=== PATIENT | male | born 1950 | race American Indian/Alaskan Native ===

== ENCOUNTER 2020-03-30 17:28 | Emergency (ER) | payer MEDICARE ==
--- NOTE | 2020-03-30 19:05 | XRay Report ---
RIGHT FOOT 3 VIEWS INDICATION / CLINICAL INFORMATION: right small toe pain and swelling. COMPARISON: None available. FINDINGS: BONES/JOINT(S): There is a mildly displaced fracture of the shaft of the fifth proximal phalanx. Ther e is no other acute fracture. There is mild DJD in the first MTP joint. SOFT TISSUES: No significant abnormality. ADDITIONAL FINDINGS: None. Signer Name: Tyrell Fountain MD Signed: 03/30/2020 7:01 PM Workstation Name: [id number]
[2020-03-30] MEDS ORDERED: NEOMY 3.5 MG/BACIT 400 UNITS/POLY B 5000 UNITS/GM OINT PACKET TP ONE (19:06)
--- NOTE | 2020-03-30 19:17 | Emergency Department Report ---
ED Lower Extremity HPI - General Chief Complaint: Extremity Injury, Lower Stated Complaint: POSS BROKEN TOE Time Seen by Provider: 03/30/20 18:20 Source: patient Mode of arrival: Ambulatory Limitations: No Limitations - History of Present Illness Initial Comments: Patient is a 69-year-old male who presents emergency room with complaints of a possible broken toe. He states that 3 days ago the garbage can fell onto his right small toe. He states since then he has had toe pain and swelling. He has been ambulatory. He denies ever injuring in the past. He denies any weakness. He states he has a history of neuropathy in this foot. He has a past medical history of neuropathy and hypertension. He has an allergy to amlodipine and lisinopril. He states that his Tdap is up-to-date. - Related Data Previous Rx's Medication Instructions Recorded Last Taken Type Acetaminophen [Tylenol] 650 mg PO Q8HR PRN #20 capsule 03/30/20 Unknown Rx Neomycin/Bacitracin/Polymyxinb 1 applicatio TP BID #14 oint...g. 03/30/20 Unknown Rx [Triple Antibiotic Ointment] cephALEXin [Keflex] 500 mg PO QID 7 Days #28 cap 03/30/20 Unknown Rx Allergies Allergy/AdvReac Type Severity Reaction Status Date / Time amlodipine Allergy Unknown Verified 03/30/20 18:15 lisinopril Allergy Unknown Verified 03/30/20 18:15 ED Review of Systems ROS: Stated complaint: POSS BROKEN TOE Other details as noted in HPI Comment: All other systems reviewed and negative ED Past Medical Hx - Past Medical History Previous Medical History?: Yes Hx Hypertension: Yes - Surgical History Past Surgical History?: No - Social History Smoking Status: Never Smoker Substance Use Type: None - Medications Home Medications: Home Medications Medication Instructions Recorded Confirmed Last Taken Type Acetaminophen [Tylenol] 650 mg PO Q8HR PRN #20 capsule 03/30/20 Unknown Rx Neomycin/Bacitracin/Polymyxinb 1 applicatio TP BID #14 oint...g. 03/30/20 Unknown Rx [Triple Antibiotic Ointment] cephALEXin [Keflex] 500 mg PO QID 7 Days #28 cap 03/30/20 Unknown Rx ED Physical Exam - General Limitations: No Limitations General appearance: alert, in no apparent distress - Head Head exam: Present: atraumatic, normocephalic - Eye Eye exam: Present: normal appearance - ENT ENT exam: Present: mucous membranes moist - Respiratory Respiratory exam: Absent: respiratory distress, accessory muscle use - Extremities Exam Extremities exam: Present: other (ttp and edema present to the right 5th toe, there is a laceration/ulceration present to the plantar surface of the right 5th toe, superficial, does not involve the subcutaneous fat, no bleeding or drainage, no increased warmth, brisk cap refill, FROM of the RLE) - Neurological Exam Neurological exam: Present: alert, oriented X3 - Psychiatric Psychiatric exam: Present: normal affect, normal mood - Skin Skin exam: Present: warm, dry ED Course Vital Signs 03/30/20 03/30/20 18:16 20:46 Temperature 98.5 F 98.6 F Pulse Rate 76 74 Respiratory 20 20 Rate Blood Pressure 137/93 Blood Pressure 160/95 [Left] O2 Sat by Pulse 99 Oximetry ED Lower Extremity MDM - Radiology Data Radiology results: report reviewed Ordering Physician: INDY HUNT Date of Service: 03/30/20 Procedure(s): XR foot 3+V RT Accession Number(s): [id number] cc: INDY HUNT Fluoro Time In Minutes: RIGHT FOOT 3 VIEWS INDICATION / CLINICAL INFORMATION: right small toe pain and swelling. COMPARISON: None available. FINDINGS: BONES/JOINT(S): There is a mildly displaced fracture of the shaft of the fifth proximal phalanx. There is no other acute fracture. There is mild DJD in the first MTP joint. SOFT TISSUES: No significant abnormality. ADDITIONAL FINDINGS: None. Signer Name: Tyrell Fountain MD Signed: 03/30/2020 7:01 PM Workstation Name: [id number] Transcribed By: DOROTHY Dictated By: Tyrell Fountain MD Electronically Authenticated By: Tyrell Fountain MD Signed Date/Time: 03/30/201900 DD/ 99 TD/TT: - Medical Decision Making Patient is a 69-year-old male who presents emergency room with complaints of a possible broken toe. He states that 3 days ago the garbage can fell onto his right small toe. He states since then he has had toe pain and swelling. He has been ambulatory. He denies ever injuring in the past. He denies any weakness. He states he has a history of neuropathy in this foot. He has a past medical history of neuropathy and hypertension. He has an allergy to amlodipine and lisinopril. He states that his Tdap is up-to-date. Vitals are stable. On exam:ttp and edema present to the right 5th toe, there is a laceration/ulceration present to the plantar surface of the right 5th toe, superficial, does not involve the subcutaneous fat, no bleeding or drainage, no increased warmth, brisk cap refill, FROM of the RLE. XR right foot: BONES/JOINT(S): There is a mildly displaced fracture of the shaft of the fifth proximal phalanx. There is no other acute fracture. There is mild DJD in the first MTP joint. SOFT TISSUES: No significant abnormality. ADDITIONAL FINDINGS: None. Wound care performed by nurse and dressing placed the toes were josiah taped and patient was placed in a postop shoe. Discussed all results with patient and the importance of follow-up. Patient will be referred to podiatry given wound to the plantar surface of the toe. Discussed very strict return precautions in detail with patient. Patient given prescription for triple antibiotic ointment, Keflex, Tylenol. Advised patient Please use medication as prescribed. Follow- up with a television director. Please keep area clean, dry, covered. Wash with antibacterial soap and water and pat dry. Return to emergency room for any new or worsening symptoms. Critical care attestation.: If time is entered above; I have spent that time in minutes in the direct care of this critically ill patient, excluding procedure time. ED Disposition Clinical Impression: Laceration Toe fracture, right Qualifiers: Encounter type: initial encounter Toe: lesser toe Fracture type: closed Phalanx: proximal Fracture alignment: displaced Qualified Code(s): S92.511A - Displaced fracture of proximal phalanx of right lesser toe(s), initial encounter for closed fracture Ulcer of toe Qualifiers: Laterality: right Non-pressure ulcer stage: limited to breakdown of skin Qualified Code(s): L97.511 - Non-pressure chronic ulcer of other part of right foot limited to breakdown of skin Disposition: DC-01 TO HOME OR SELFCARE Is pt being admited?: No Does the pt Need Aspirin: No Condition: Stable Instructions: Toe Fracture, [id number] Additional Instructions: Please use medication as prescribed. Follow-up with a television director. Please keep area clean, dry, covered. Wash with antibacterial soap and water and pat dry. Return to emergency room for any new or worsening symptoms. Prescriptions: cephALEXin [Keflex] 500 mg PO QID 7 Days #28 cap Neomycin/Bacitracin/Polymyxinb [Triple Antibiotic Ointment] 1 applicatio TP BID #14 oint...g. Acetaminophen [Tylenol] 650 mg PO Q8HR PRN #20 capsule PRN Reason: pain Referrals: ARMINDA DAVILA DPM [Staff Physician] - 2-3 Days Forms: Work/School Release Form(ED) Time of Disposition: 19:17 Print Language: HAITIAN
[2020-03-30 20:54] VITALS: BP 160/95
== END 2020-03-30 21:20 | disposition home or self-care (01) ==
LOC: ED 17:28
DX: S92.511A Displaced fracture of proximal phalanx of right lesser toe(s), initial encounter for closed fracture (principal); L97.519 Non-pressure chronic ulcer of other part of right foot with unspecified severity; I10 Essential (primary) hypertension; Z79.2 Long term (current) use of antibiotics; Z79.899 Other long term (current) drug therapy; Z88.8 Allergy status to other drugs, medicaments and biological substances; W19.XXXA Unspecified fall, initial encounter; Y93.89 Activity, other specified; Y92.89 Other specified places as the place of occurrence of the external cause; Y99.8 Other external cause status
CPT/HCPCS: 73630; 99283; A6250